=== PATIENT | female | born 1990 | race African-American/Black ===

== ENCOUNTER 2019-07-04 19:49 | Emergency (ER) | payer OTHER ==
[~2019-07-04] VITALS: Ht 162.6 cm; Wt 86.0 kg
[~2019-07-04 19:49] MED LIST: FOLI-43 PO; PREN-88 PO
[2019-07-04 19:55] VITALS: BP 124/75
== END 2019-07-05 05:17 | disposition left against medical advice (07) ==
LOC: ER 20:08
DX: R05 Cough (principal); Z53.21 Procedure and treatment not carried out due to patient leaving prior to being seen by health care provider